=== PATIENT | male | born 1940 | race African-American/Black ===

== ENCOUNTER 2024-05-03 20:08 | Emergency (ER) | payer OTHER ==
[~2024-05-03] VITALS: Ht 152.4 cm; Wt 77.1 kg
[2024-05-03 20:17] VITALS: RESP 18; TEMP 98.4; O2SAT 100
[2024-05-03 20:33] VITALS: PULSE 88
== END 2024-05-03 20:36 | disposition home or self-care (01) ==
LOC: FSED 20:17
DX: I95.9 Hypotension, unspecified (principal); I12.9 Hypertensive chronic kidney disease with stage 1 through stage 4 chronic kidney disease, or unspecified chronic kidney disease; E11.22 Type 2 diabetes mellitus with diabetic chronic kidney disease; N18.9 Chronic kidney disease, unspecified; Z99.2 Dependence on renal dialysis
CPT/HCPCS: 99282

== ENCOUNTER 2025-02-06 09:59 | Emergency (ER) | payer MEDICARE, OTHER ==
[~2025-02-06] VITALS: Ht 165.1 cm; Wt 73.0 kg
[2025-02-06 10:00] VITALS: PULSE 74; RESP 18; TEMP 98.5; O2SAT 99
[2025-02-06 11:14] VITALS: BP 112/68; PULSE 70; RESP 18; TEMP 98.4
== END 2025-02-06 11:16 | disposition home or self-care (01) ==
LOC: FSED 10:14
DX: M79.675 Pain in left toe(s) (principal); L97.529 Non-pressure chronic ulcer of other part of left foot with unspecified severity; E11.621 Type 2 diabetes mellitus with foot ulcer; R23.4 Changes in skin texture; I12.9 Hypertensive chronic kidney disease with stage 1 through stage 4 chronic kidney disease, or unspecified chronic kidney disease; E11.22 Type 2 diabetes mellitus with diabetic chronic kidney disease; N18.9 Chronic kidney disease, unspecified; Z99.2 Dependence on renal dialysis; E78.5 Hyperlipidemia, unspecified
CPT/HCPCS: 99283